=== PATIENT | male | born 1965 | race Caucasian/White ===

== ENCOUNTER 2017-01-22 16:17 | Emergency (ER) ==
--- NOTE | 2017-01-22 17:04 | Diag Imaging Result Document ---
PROCEDURE NAME: CHEST-2 VIEWS - 01/22/2017 CHEST, TWO VIEWS: INDICATION: Cough. COMPARISON: 05/09/2016. FINDINGS: The cardiomediastinal silhouette is within normal limits. There are prominent interstitial markings bilaterally consistent with fibrosis, stable from prior. No infiltrates or effusions are identified. There are surgical clips in the left neck. IMPRESSION: 1. Prominent interstitial markings similar to prior studies. 2. No acute abnormalities.
--- NOTE | 2017-01-22 17:20 | PROVIDER DOCUMENTATION ---
HPI-General Adult - General Source: patient - History of Present Illness -Gen Adult Nature of Presenting Problems: Pt is 51 y/o M presents to the ED with cough. Pt states the cough has been present for 6 days. Pt denies F and chills. Pt states cough is productive sometimes. Location of Pain/Injury: reports: none Pain Radiation: reports: no radiation Quality of Pain: reports: none Onset/Duration: reports: 6 days ago Timing: reports: still present Context/Activities at Onset: reports: light activity Modifying Factors: improves with: nothing Associated Symptoms: reports: cough Similar Symptoms Previously?: Yes Recently seen or treated by another doctor?: No <Melania Zimmerman - Last Filed: 01/22/17 17:16> <Marsha Mcduffie - Last Filed: 01/22/17 18:08> - General Chief Complaint: Cough Stated Complaint: COUGH Time Seen by Provider: 01/22/17 16:32 Allergies/Adverse Reactions: Patient Allergies Allergy/AdvReac Type Severity Reaction Status Date / Time No Known Allergies Allergy Verified 05/16/16 08:30 Home Medications: Home Medication List Medication Instructions Recorded Confirmed Last Taken Type Aspirin 81 mg PO DAILY 05/13/13 05/16/16 01/02/15 07:00 History Escitalopram Oxalate [Lexapro] 10 mg PO QAM 11/29/13 05/16/16 01/02/15 07:00 History Lisinopril 20 mg PO QAM 11/29/13 05/16/16 01/02/15 07:00 History Albuterol Sulfate Inhaler 2 puff INH Q6H PRN PRN #1 inhaler 01/02/15 05/16/16 Unknown Rx [Ventolin Hfa] Azithromycin [Zithromax Z-Sudeep] 250 mg PO DIRECTED #1 pkg 01/02/15 05/16/16 Unknown Rx Insulin NPH Hum/Reg Insulin Hm 100 unit SQ BID 01/02/15 05/16/16 01/02/15 08:00 History [Humulin 70-30 Vial] Metformin [Glucophage] 500 mg PO DAILY 01/02/15 05/16/16 12/19/14 08:00 History Methylprednisolone [Medrol Dosepak] 4 mg PO DIRECTED #1 package 01/02/15 Unknown Rx Pregabalin [Lyrica] 100 mg PO TID 01/02/15 05/16/16 01/02/15 07:00 History Albuterol Sulfate Inhaler 2 puff INH Q6H PRN PRN #1 inhaler 05/16/16 Unknown Rx [Ventolin Hfa] Azithromycin [Zithromax Z-Sudeep] 250 mg PO DIRECTED #1 pkg 05/16/16 Unknown Rx Azithromycin [Zithromax Z-Sudeep] 250 mg PO DIRECTED #1 pkg 01/22/17 Unknown Rx Promethazine/Dextromethorphan 118 ml PO HS #1 syrup 01/22/17 Unknown Rx [Promethazine-Dm Syrup] Review of Systems - Adult - REVIEW OF SYSTEMS - ADULT Constitutional: reports: no symptoms reported Eyes: reports: no symptoms reported Ears, Nose, Mouth & Throat: reports: no symptoms reported Cardiovascular: reports: no symptoms reported Respiratory: reports: cough. denies: shortness of breath, wheezing Gastrointestinal: reports: no symptoms reported Genitourinary: reports: no symptoms reported Musculoskeletal: reports: no symptoms reported Integumentary: reports: no symptoms reported Neurological: reports: no symptoms reported Psychiatric: reports: no symptoms reported Endocrine: reports: no symptoms reported Hematologic/Lymphatic: reports: no symptoms reported Allergic/Immunologic: reports: no symptoms reported All Other Systems: Reviewed and Negative <Melania Zimmerman - Last Filed: 01/22/17 17:16> Past History - Adult - PAST MEDICAL HISTORY-ADULT Review of Records: reports: Nursing Assessment Review, Medications Reviewed, Social history reviewed & non-contributory. Major Childhood Illnesses: reports: denies history Cardiovascular: reports: HTN, hyperlipidemia Respiratory: reports: denies history Gastrointestinal: reports: denies history Obstetrical/Gynecological: reports: denies history Genitourinary: reports: denies history Musculoskeletal: reports: chronic pain Neurological: reports: denies history Psychiatric: reports: depression Endocrine/Immune: reports: Diabetes Other Conditions: reports: denies history - PRIOR SURGERIES/PROCEDURES Surgical/Procedure History: reports: hernia repair, orthopedic (extremity) - IMMUNIZATION STATUS Childhood Immunizations: See Nurse Assessment Flu Vaccine: See Nurse Assessment - FAMILY HISTORY Family History: reviewed, not pertinent - SOCIAL HISTORY Smoking: denies Substance Use: denies Living Situation: family <Melania Zimmerman - Last Filed: 01/22/17 17:16> Physical Exam-General - PHYSICAL EXAM-ADULT Initial Vital Signs Reviewed: Yes - CONSTITUTIONAL General Appearance: appears well, alert, no apparent distress - EYES Eyes: PERRL/EOMI, pink conjunctivae, fundi clear, no AV nicking - HEAD, EARS, NOSE, MOUTH & THROAT HENMT: normocephalic/atraumatic, moist mucous membranes, normal ENT inspection, TMs normal, pharynx normal - NECK Neck: non-tender, full range of motion, supple, normal inspection - RESPIRATORY Respiratory: chest non-tender, lungs clear, normal breath sounds, no pleuratic chest pain, no respiratory distress, no accessory muscle use - CARDIOVASCULAR Cardiovascular: normal peripheral pulses, regular rate, rhythm, no edema, no gallop, no JVD, no murmur - GASTROINTESTINAL (ABDOMEN) Abdominal Exam: normal bowel sounds, non tender, soft, no organomegaly, no pulsatile mass - LYMPHATIC Lymphatic: no adenopathy - MUSCULOSKELETAL Back Exam: normal inspection, no CVA tenderness, no vertebral tenderness Extremity: normal range of motion, non-tender, normal gait, normal inspection, no pedal edema, no calf tenderness, normal capillary refill, pelvis stable - SKIN Integumentary: normal color, normal turgor, warm/dry - NEUROLOGIC Neurologic: ekg technician II-XII nml as tested, grossly normal, no motor/sensory deficits - PSYCHIATRIC Psych/Mental Status: normal mood/affect, normal thought content, normal thought process, oriented x 3 <Melania Zimmerman - Last Filed: 01/22/17 17:16> - PHYSICAL EXAM-ADULT Initial Vital Signs Reviewed: Yes - CONSTITUTIONAL General Appearance: appears well, alert, mild distress - EYES Eyes: PERRL/EOMI, pink conjunctivae - HEAD, EARS, NOSE, MOUTH & THROAT HENMT: normocephalic/atraumatic, moist mucous membranes, normal ENT inspection, TMs normal, pharynx normal - RESPIRATORY Respiratory: lungs clear, normal breath sounds - CARDIOVASCULAR Cardiovascular: normal peripheral pulses, regular rate, rhythm - GASTROINTESTINAL (ABDOMEN) Abdominal Exam: non tender, soft - MUSCULOSKELETAL Extremity: normal range of motion, normal gait, normal capillary refill - SKIN Integumentary: normal color, normal turgor, warm/dry <Marsha Mcduffie - Last Filed: 01/22/17 18:08> Progress - PLAN OF CARE/RESULTS Progress/Plan/Lab Results: Orders Category Date Time Status CHEST-2 VIEWS [RAD] Stat Exams 01/22/17 16:32 Draft CBC WITH DIFF [HEME] Stat Lab 01/22/17 16:55 Ordered CMP [COMPREHENSIVE METABOLIC PANEL] [CHEM] Stat Lab 01/22/17 16:55 Ordered Vital Signs - 24 hr 01/22/17 16:25 Temperature 98.7 F Pulse Rate 96 H Respiratory 18 Rate Blood Pressure 147/66 O2 Sat by Pulse 95 Oximetry <Melania Zimmerman - Last Filed: 01/22/17 17:16> - PLAN OF CARE/RESULTS Progress/Plan/Lab Results: Discussed care, diagnosis and need for follow-up, patient verbalized understanding Laboratory Tests 01/22/17 01/22/17 16:40 16:40 WBC 10.36 RBC 4.40 L Hgb 13.3 L Hct 39.7 L MCV 90.2 MCH 30.2 MCHC 33.5 RDW Std Deviation 12.9 Plt Count 259 MPV 9.6 Immature Gran % (Auto) 0.3 Neut % (Auto) 48.3 Lymph % (Auto) 40.1 [place] % (Auto) 5.6 Eos % (Auto) 5.3 Baso % (Auto) 0.4 Immature Gran # (Auto) 0.03 Neut # (Auto) 5.01 Lymph # (Auto) 4.15 H [place] # (Auto) 0.58 Eos # (Auto) 0.55 Baso # (Auto) 0.04 Sodium 137 Potassium 4.1 Chloride 102 Carbon Dioxide 21 L Anion Gap 14 BUN 19 Creatinine 0.9 Estimated GFR/1.73 m2 > 60 BUN/Creatinine Ratio 21 Glucose 173 H Calculated Osmolality 280 Calcium 10.1 Total Bilirubin 0.30 AST 25 ALT 24 Alkaline Phosphatase 131 H Total Protein 6.7 Albumin 4.4 Globulin 2.0 Albumin/Globulin Ratio 2.0 Orders Category Date Time Status CHEST-2 VIEWS [RAD] Stat Exams 01/22/17 16:32 Draft CBC WITH DIFF [HEME] Stat Lab 01/22/17 16:40 Completed CMP [COMPREHENSIVE METABOLIC PANEL] [CHEM] Stat Lab 01/22/17 16:40 Completed Albuterol [Albuterol Neb] Med 01/22/17 17:39 Discontinued 2.5 mg INH NOW ONE Aerosol Treatments Routine Oth 01/22/17 17:39 Completed Aerosol Treatments Stat Oth 01/22/17 17:39 Completed Last Vital Signs Temp 98.7 F 01/22/17 16:25 Pulse 78 01/22/17 18:03 Resp 12 01/22/17 18:03 BP 128/102 01/22/17 17:36 Pulse Ox 95 01/22/17 16:25 Allergies No Known Allergies Allergy (Verified 05/16/16 08:30) Lab Tests 01/22/17 01/22/17 16:40 16:40 WBC 10.36 RBC 4.40 L Hgb 13.3 L Hct 39.7 L MCV 90.2 MCH 30.2 MCHC 33.5 RDW Std Deviation 12.9 Plt Count 259 MPV 9.6 Immature Gran % (Auto) 0.3 Neut % (Auto) 48.3 Lymph % (Auto) 40.1 [place] % (Auto) 5.6 Eos % (Auto) 5.3 Baso % (Auto) 0.4 Immature Gran # (Auto) 0.03 Neut # (Auto) 5.01 Lymph # (Auto) 4.15 H [place] # (Auto) 0.58 Eos # (Auto) 0.55 Baso # (Auto) 0.04 Sodium 137 Potassium 4.1 Chloride 102 Carbon Dioxide 21 L Anion Gap 14 BUN 19 Creatinine 0.9 Estimated GFR/1.73 m2 > 60 BUN/Creatinine Ratio 21 Glucose 173 H Calculated Osmolality 280 Calcium 10.1 Total Bilirubin 0.30 AST 25 ALT 24 Alkaline Phosphatase 131 H Total Protein 6.7 Albumin 4.4 Globulin 2.0 Albumin/Globulin Ratio 2.0 Vital Signs - 24 hr 01/22/17 01/22/17 01/22/17 16:25 17:36 18:03 Temperature 98.7 F Pulse Rate 96 H 80 78 Respiratory 18 12 12 Rate Blood Pressure 147/66 128/102 O2 Sat by Pulse 95 Oximetry - XRAY 1 XRAY Study: Chest Impression: Normal XRAY Interpretation: neg <Marsha Mcduffie - Last Filed: 01/22/17 18:08> Departure <Melania Zimmerman - Last Filed: 01/22/17 17:16> - Departure Time of Disposition Order: 17:35 Certified Medical Emergency: Emergent <Marsha Mcduffie - Last Filed: 01/22/17 18:08> - Departure DIAGNOSIS: Bronchitis, Cough Disposition: HOME 01 Condition: Stable Additional Instructions: ED Follow Up Instructions: You have been treated by a care provider in the Emergency Department. These instructions are being provided to you so you can have an understanding of how to care for yourself upon discharge. Upon discharge from the Emergency Department, you are responsible for making arrangements for follow-up care by a physician of your choice. Take all prescribed medications as directed. Return to the Emergency Department immediately for any new or worsening symptoms. You may call the Physician Referral phone number at [phone] to obtain a list of Physicians who are taking new patients. Prescriptions: Promethazine/Dextromethorphan [Promethazine-Dm Syrup] 118 ml PO HS #1 syrup Azithromycin [Zithromax Z-Sudeep] 250 mg PO DIRECTED #1 pkg Referrals: Shola Pierson [Primary Care Provider] - Attestation - Scribe Verification/Attestation Scribe:: Melania Zimmerman Acting as Scribe for:: Marsha Mcduffie Scribe documention review:: This chart was documented by a scribe and accurately reflects the service the provider performed and the decisions made by the provider. <Melania Zimmerman - Last Filed: 01/22/17 17:16> - Physician/ RHYS Attestation Patient care was provided by Advanced Practice Provider:: Yes Advanced Practice Provider:: Marsha Mcduffie Advanced Practice Provider documentation review:: The Mid-level provider documentation, treatment plan and medical decision making was reviewed by the physician who agrees with all treatment and medical decision making by the MLP. <Marsha Mcduffie - Last Filed: 01/22/17 18:08> Physician Attestation
[2017-01-22 17:22] LABS: MANUAL DIFF NEEDED? NO
[2017-01-22 17:25] LABS: BASO% 0.4 % (0.0-0.8); EOS# 0.55 X1000 (0.0-0.7); EOS% 5.3 % (0.0-10.0); HEMATOCRIT 39.7 % (42.0-52.0); HEMOGLOBIN 13.3 g/dL (14.0-18.0); IMM GRAN# 0.03 X1000 (0.0-0.04); IMM GRAN% 0.3 % (0.0-0.5); LYMPH# 4.15 X1000 (1.2-3.4); LYMPH% 40.1 % (20.5-51.1); MCH 30.2 PG (27-31); MCHC 33.5 g/dL (33-37); MCV 90.2 FL (81-99); MONO# 0.58 X1000 (0.11-0.59); MONO% 5.6 % (1.7-9.3); MPV 9.6 FL (7.4-10.4); NEUT% 48.3 % (42.2-75.2); PLT 259 X1000 (130-400)
[2017-01-22 17:37] VITALS: BP 128/102
[2017-01-22] MEDS ORDERED: ALBUTEROL NEB INH ONE (17:39)
[2017-01-22 18:03] LABS: AGAP 14; ALBUMIN 4.4 g/dL (3.5-5.0); ALKALINE PHOSPHATASE 131 U/L (32-122); BUN 19 mg/dL (8-22); CALCIUM 10.1 mg/dL (8.8-10.2); CHLORIDE 102 mmol/L (98-107); COSMO 280; GOT 25 U/L (10-34); GPT 24 U/L (10-44); POTASSIUM 4.1 mmol/L (3.5-5.1); SODIUM 137 mmol/L (136-145); TCO2 21 mmol/L (25-35); TOTAL PROTEIN 6.7 g/dL (6.3-8.3)
== END 2017-01-22 19:40 | disposition home or self-care (01) ==
LOC: P.ED 16:17
DX: J40 Bronchitis, not specified as acute or chronic (principal); R05 Cough; R09.3 Abnormal sputum; I10 Essential (primary) hypertension; E78.5 Hyperlipidemia, unspecified; G89.29 Other chronic pain; E11.9 Type 2 diabetes mellitus without complications; F32.9 Major depressive disorder, single episode, unspecified; Z79.4 Long term (current) use of insulin; Z79.899 Other long term (current) drug therapy
CPT/HCPCS: 71020; 80053; 85025; 94640; 99283